=== PATIENT | female | born 1955 | race Caucasian/White ===

== ENCOUNTER → 2023-12-28 | Outpatient (CLI) | payer OTHER, SELFPAY ==
--- NOTE | 2023-12-28 10:00 | XR_ITS ---
Examination: Screening digital mammography, bilateral Computer aided detection 3-D breast Tomosynthesis, bilateral Date and time of exam: December 28, 2023 at 0940 hours INDICATIONS: Patient states lump in the left arm pit noticed 4 months ago Indication: Screening Technique: Nonmagnified MLO, CC views of the breasts to been obtained, reconstructed from 3-D Tomosynthesis images. R2 computer aided detection program utilized for evaluation of suspicious masses and/or abnormal calcifications. 3-D Tomosynthesis images obtained. Findings: The breasts are heterogeneously dense, which may obscure small masses 4 mm nodule retroareolar region right breast 7 mm nodule upper left breast MLO view, 2.7 cm from the nipple 10 mm lymph node in the left axilla with irregular margins Impression: IMPRESSION: 4 mm nodule retroareolar region right breast, recommend follow-up spot tomographic views 7 mm nodule upper left breast MLO view, 2.7 cm from the nipple, recommend follow-up spot tomographic views upper outer quadrant left breast anterior depth 10 mm lymph node left axilla with irregular margins, recommend follow-up spot tomographic views in the axillary region left breast Recommend bilateral breast sonography follow-up
== END | disposition home or self-care (01) ==
PROVIDERS: Referring Provider Family Medicine; Visit Provider Family Medicine
DX: Z12.31 Encounter for screening mammogram for malignant neoplasm of breast (principal); R92.8 Other abnormal and inconclusive findings on diagnostic imaging of breast; N63.41 Unspecified lump in right breast, subareolar; N63.21 Unspecified lump in the left breast, upper outer quadrant; N63.32 Unspecified lump in axillary tail of the left breast
CPT/HCPCS: 77063; 77067

== ENCOUNTER → 2024-01-19 | Outpatient (CLI) | payer OTHER, SELFPAY ==
--- NOTE | 2024-01-19 08:00 | XR_ITS ---
Examination: Breast ultrasound complete, bilateral Date and time of exam: January 19, 2024 0752 hours INDICATIONS: Patient states lump in the arm. Note is beginning 5 months ago, mammogram December 28, 2023 4 mm nodule retroareolar region right breast 7 mm nodule upper left breast MLO view Lymph nodes in the left axilla with irregular margins Technique: Real-time grayscale ultrasonographic imaging bilateral breasts, including all 4 quadrants as well as nipple retroareolar and axillary regions. Findings: Sonographic images right breast No cystic or solid mass Abnormal appearing right axillary left breast with indistinct margins 26 x 22 mm Sonographic images left breast No cystic or solid mass IMPRESSION: BI-RADS Category 4: Suspicious for malignancy Suspicious lymph node in the right axilla, biopsy is needed to exclude breast carcinoma, this lymph node is amenable to ultrasound-guided breast cyst
--- NOTE | 2024-01-19 09:15 | XR_ITS ---
Examination: Diagnostic digital mammography, bilateral Computer aided detection 3-D breast Tomosynthesis, bilateral Date and time of exam: January 19, 2024 0812 hours INDICATIONS: Mammogram December 28, 2023 4 mm nodule retroareolar region right breast 7 mm nodule upper left breast MLO view Technique: Nonmagnified MLO, CC views of the breasts to been obtained, reconstructed from 3-D Tomosynthesis images. R2 computer aided detection program utilized for evaluation of suspicious masses and/or abnormal calcifications. 3-D Tomosynthesis images obtained. Findings: The breasts are heterogeneously dense, which may obscure small masses Focal asymmetry is present on the spot compression CC view, inner right breast 7 mm No suspicious mass on the spot compression left breast use noted Impression: 3: Probably benign findings Recommend 1 additional continued 6 month right mammogram follow-up to document stability of focal asymmetry inner right breast 7 mm Please see the right breast sonogram today indicating abnormal right axillary lymph node requiring ultrasound-guided axillary biopsy
== END | disposition home or self-care (01) ==
LOC: CDIM 07:37
PROVIDERS: Referring Provider Family Medicine; Visit Provider Family Medicine
DX: N64.89 Other specified disorders of breast (principal)
CPT/HCPCS: 76641; 77062; 77066; G0279

== ENCOUNTER → 2024-03-20 | Outpatient (CLI) | payer OTHER, SELFPAY ==
[2024-03-19 13:42] LABS: Basophils # (Auto) 0.1 Thou/mm3 (0.0-0.2); Basophils % (Auto) 1 % (0-2.5); Eosinophils # (Auto) 0.1 Thou/mm3 (0.0-0.5); Eosinophils % (Auto) 1 % (0-10); Hematocrit 44.5 % (36.0-46.0); Hemoglobin 15.3 g/dL (12.0-16.0); Immature Granulocytes % (Auto) 0 % (0-0); Immature Granulocytes Auto 0.02 Thou/mm3 (0.00-0.00); Lymphocytes # (Auto) 2.4 Thou/mm3 (1.0-4.8); Lymphocytes % (Auto) 31 % (10-50); Mean Corpuscular HGB Conc 34.4 g/dl (31.0-37.0); Mean Corpuscular Hemoglobin 33.2 pg (25.0-35.0); Mean Corpuscular Volume 97 fL (80-100); Monocytes # (Auto) 0.6 Thou/mm3 (0.0-0.8); Monocytes % (Auto) 8 % (0-12); Neutrophils # (Auto) 4.6 Thou/mm3 (1.8-7.7); Neutrophils % (Auto) 60 % (37-80); Nucleated Red Blood Cell % 0 /100 WBC (0); Platelet Count 197 Thou/mm3 (140-440); RDW Standard Deviation 44.5 fL (36.4-46.3); Red Blood Count 4.61 Miln/mm3 (4.00-5.20); White Blood Count 7.8 Thou/mm3 (3.6-11.0)
[2024-03-19 13:56] LABS: Partial Thromboplastin Time 25.1 Seconds (22.0-36.0); Prothrombin Time 10.7 Seconds (9.0-12.2)
--- NOTE | 2024-03-20 09:30 | XR_ITS ---
Examination: Breast ultrasound complete, bilateral Date and time of exam: March 20, 2024 1042 hours INDICATIONS: Prominent lymph nodes in the right axilla on breast sonogram January 19, 2024 Technique: Real-time grayscale ultrasonographic imaging bilateral breasts, including all 4 quadrants as well as nipple retroareolar and axillary regions. Findings: Current study demonstrates no suspicious axillary lymph nodes IMPRESSION: BI-RADS Category 2: Benign findings
== END | disposition home or self-care (01) ==
LOC: SDIM 09:03 → SIRX 10:26
PROVIDERS: Radiology Diagnostic Radiology; PCP Family Medicine; Referring Provider Family Medicine; Visit Provider Family Medicine
DX: R59.0 Localized enlarged lymph nodes (principal); Z53.8 Procedure and treatment not carried out for other reasons; Z01.812 Encounter for preprocedural laboratory examination
CPT/HCPCS: 36415; 76641; 85025; 85610; 85730

== ENCOUNTER → 2024-06-20 | Outpatient (CLI) | payer OTHER, SELFPAY ==
--- NOTE | 2024-06-20 13:30 | ECHO_ITS ---
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 16 - 28 cm?/m? Ascending Aorta Diameter 4.1 cm DOPPLER AV Peak Velocity 166.5 cm/s AV Peak Gradient 11.1 mmHg AV Mean Gradient 7.0 mmHg AV Velocity Time Integral 39.3 cm AI Peak Velocity 317.0 cm/s AI Peak Gradient 40.2 mmHg AI Pressure Half Time 646.0 ms LVOT Peak Velocity 105.0 cm/s LVOT Peak Gradient 4.4 mmHg LVOT Velocity Time Integral 22.1 cm LVOT Cardiac Index 1958.2 cm?/min?m? AV Area Cont Eq vti 1.4 cm? AV Area Cont Eq pk 1.6 cm? MV Area PHT 1.8 cm? Mitral E Point Velocity 60.8 cm/s Mitral A Point Velocity 108.0 cm/s Mitral E to A Ratio 0.6 LV E' Lateral Velocity 6.7 cm/s Mitral E to LV E' Lateral Ratio 9.0 LV E' Septal Velocity 7.9 cm/s Mitral E to LV E' Septal Ratio 7.7 TR Peak Velocity 299.5 cm/s TR Peak Gradient 35.9 mmHg PV Peak Velocity 100.0 cm/s PV Peak Gradient 4.0 mmHg RVOT Peak Velocity 72.4 cm/s FINDINGS Left Ventricle Normal left ventricular size, wall thickness, systolic function with no obvious regional wall motion abnormalities. There is grade I diastolic dysfunction of the left ventricle (impaired relaxation pattern). The left ventricular ejection fraction is normal, estimated at 60-65%. Right Ventricle The right ventricle is normal in size and systolic function. The estimated right ventricular systolic pressure, 40 mmHg. Left Atrium The left atrium is normal by two-dimensional, color flow and Doppler imaging with no structural abnormalities, no thrombus formation present. Right Atrium The right atrium is normal by two-dimensional imaging, color flow and Doppler imaging with no structural abnormalities, no thrombus formation present. Atrial Septum The interatrial septum appears normal with no evidence of a shunt. Aorta The aorta is normal by two-dimensional, color flow and Doppler interrogation. Mitral Valve Mild mitral regurgitation. Mild mitral annular calcification. Aortic Valve Aortic valve sclerosis. Trace to mild aortic valve regurgitation. Diffuse calcification of the aortic valve. Tricuspid Valve There is mild tricuspid valve regurgitation. Pulmonic Valve Trivial pulmonic valve regurgitation. Vessels The pulmonary artery appears normal. The inferior vena cava pulmonary and hepatic veins appear normal. Pericardium The pericardium is normal by two-dimensional imaging. There is no significant pericardial effusion. CONCLUSIONS indication: murmur The transthoracic study is normal by two-dimensional, color flow imaging and Doppler interrogation. Normal left ventricular size and function. Approximate ejection fraction is 65%. Posterior mitral annulus calcifocation Mild mitral and trace tricuspid regurgitation No wall motion abnormalities Renee Garcia (Electronically Signed) Final Date: 21 Jun 2024 15:06
== END | disposition home or self-care (01) ==
LOC: SDIM 12:54
PROVIDERS: PCP Family Medicine; Referring Provider Family Medicine; Visit Provider Family Medicine
DX: I08.1 Rheumatic disorders of both mitral and tricuspid valves (principal)
CPT/HCPCS: 93306

== ENCOUNTER → 2024-11-06 | Outpatient (CLI) | payer OTHER, SELFPAY ==
[2024-11-06 12:48] LABS: Alanine Aminotransferase 22 U/L (10-49); Albumin, Serum 4.8 gm/dL (3.4-4.8); Alkaline Phosphatase 55 U/L (46-116); Aspartate Amino Transferase 25 U/L (0-34); Bilirubin,Direct 0.2 mg/dL (0.0-0.3); Bilirubin,Total 0.6 mg/dL (0.3-1.2); Cardiac Risk Estimate 1.4 RATIO (3.7-5.6); Cholesterol 159 mg/dL (132-200); Ferritin 197 ng/mL (7.3-270.7); HDL Cholesterol 114 mg/dL (40-60); Iron 65 mcg/dL (50-170); LDL Cholesterol,Calculated 25 mg/dL (0-130); Percent Iron Saturation 19 % (20-55); Total Iron Binding Capacity 337 mcg/dL (250-425); Total Protein 6.9 gm/dL (5.7-8.2); Triglycerides 98 mg/dL (30-150); Unsaturated Iron Binding 272 (225-295)
== END | disposition home or self-care (01) ==
LOC: COPL 11:26
PROVIDERS: PCP Family Medicine; Referring Provider Internal Medicine Cardiovascular Disease; Visit Provider Internal Medicine Cardiovascular Disease
DX: E78.00 Pure hypercholesterolemia, unspecified (principal); I48.21 Permanent atrial fibrillation
CPT/HCPCS: 36415; 80061; 80076; 82728; 83540; 83550